=== PATIENT | male | born 1995 | race Asian ===

== ENCOUNTER 2019-02-15 22:28 | Emergency (ER) | payer SELFPAY ==
[~2019-02-15] VITALS: Ht 193 cm; Wt 90.9 kg
[~2019-02-15 22:28] MED LIST: IBUP-2070 PO
[2019-02-15] MEDS ORDERED: DiphenhydrAMINE HCL 50 MG/ML VIAL IM ONE (23:30)
[2019-02-15] MEDS ORDERED: PredniSONE 20 MG TABLET PO ONE (23:30)
[2019-02-16 00:14] VITALS: BP 129/78
== END 2019-02-16 00:45 | disposition home or self-care (01) ==
LOC: EMS 22:31
DX: L50.9 Urticaria, unspecified (principal)
CPT/HCPCS: 96372; 99283; J1200; J7512

== ENCOUNTER 2019-05-29 11:46 | Emergency (ER) | payer OTHER ==
[~2019-05-29] VITALS: Ht 193 cm; Wt 90.9 kg
[2019-05-29] MEDS ORDERED: IBUPROFEN 600 MG TABLET PO ONE (12:15)
[2019-05-29 13:16] VITALS: BP 137/82
== END 2019-05-29 13:32 | disposition home or self-care (01) ==
LOC: EMS 11:46
DX: M25.531 Pain in right wrist (principal); R03.0 Elevated blood-pressure reading, without diagnosis of hypertension

== ENCOUNTER 2024-02-27 07:38 | Emergency (ER) | payer OTHER ==
[~2024-02-27] VITALS: Ht 193 cm; Wt 95.5 kg
[2024-02-27 07:42] VITALS: BP 153/85; PULSE 104; RESP 18; TEMP 98.5; O2SAT 99
[2024-02-27 08:30] LABS: HEMATOCRIT 47.5 % (41-53); HEMOGLOBIN 15.6 g/dL (13.5-17.5); MEAN CORPUSCULAR HEMOGLOBIN 29.1 pg (26.0-34.0); MEAN CORPUSCULAR HGB CONC 32.9 G/dL (31.0-37.0); MEAN CORPUSCULAR VOLUME 88 fL (80-100); PLATELET COUNT (AUTO) 309 K/uL (150-450); RED BLOOD CELL COUNT(AUTO) 5.38 MIL/uL (4.50-5.90); RED CELL DISTRIBUTION WIDTH 13.7 % (11.5-14.5); WHITE BLOOD COUNT (AUTO) 12.8 K/uL (4.5-11.0)
[2024-02-27 08:45] LABS: ANION GAP 9 mmol/L (8-16); CALCIUM, TOTAL 8.9 mg/dL (8.8-10.5); CARBON DIOXIDE 26 mmol/L (22-29); CHLORIDE 104 mmol/L (98-107); CREATININE 0.92 mg/dL (0.60-1.30); GLOMERULAR FILTR. RATE CALC > 60 mL/min (>60); GLUCOSE,RANDOM 109 mg/dL (70-110); SODIUM SERUM 139 mmol/L (136-145); UREA NITROGEN, BLOOD 15 mg/dL (7-18)
[2024-02-27 09:21] LABS: BAND NEUTROPHILS % (MANUAL) 2 % (0-5); EOSINOPHILS % (MANUAL) 1 % (1-6); LYMPHOCYTES % (MANUAL) 3 % (22-44); MONOCYTES % (MANUAL) 5 % (2-9); SEGMENTED NEUTROPHILS % 89 % (40-70); TOTAL CELLS COUNTED 100
[2024-02-27 09:22] LABS: RBC MORPHOLOGY COMMENT NORMAL RBC MORPH
[2024-02-27 09:31] LABS: LIPASE 36 U/L (16-77)
[2024-02-27] MEDS: PANTOPRAZOLE SODIUM 40 MG/VIAL IVP ONE (09:36)
[2024-02-27] MEDS: ONDANSETRON HCL 4 MG/2 ML VIAL IVP ONE (09:36)
[2024-02-27] MEDS: SODIUM CHLORIDE 0.9% 1,000 ML IV ONE (09:37)
[2024-02-27] MEDS ORDERED: FAMO20 PO (10:28)
== END 2024-02-27 10:57 | disposition home or self-care (01) ==
LOC: EMS 07:38
DX: K92.0 Hematemesis (principal); R10.13 Epigastric pain
CPT/HCPCS: 80048; 83690; 85025; 36415; 99284; 96361; 96374; 96375; J2405; C9113; J7030; J2471